=== PATIENT | female | born 1945 | race Caucasian/White ===

== ENCOUNTER 2017-05-12 13:07 | Inpatient (IN) | payer MEDICARE, OTHER ==
[~2017-05-12] VITALS: Ht 167.6 cm; Wt 78.0 kg
[~2017-05-12 13:07] MED LIST: ASPI-1094 PO; ATOR40TA PO; CLOP75TA2 PO; LOSA25TA13 PO; METO25TA6 PO
--- NOTE | 2017-05-12 13:08 | NUR ---
BBRA 102 FROM HOME FOR PALPITATIONS FROM [facility] PER REPORT PT IS STRESSED . PLACED ON MONITOR. AWAITING MD ORDER.
[2017-05-12 13:39] LABS: BASOPHILS % (AUTO) 0.6 % (0.0-2.0); EOSINOPHILS % (AUTO) 0.5 % (0.0-6.0); HEMATOCRIT 37 % (33-45); HEMOGLOBIN 12.7 g/dL (11.5-14.8); LYMPHOCYTES # (AUTO) 1.7 /CMM (0.8-4.8); LYMPHOCYTES % (AUTO) 28.6 % (20.0-44.0); MEAN CORPUSCULAR HEMOGLOBIN 31 PG (26.0-33.0); MEAN CORPUSCULAR HGB CONC 34 g/dl (31.0-36.0); MEAN CORPUSCULAR VOLUME 91 fL (82-100); MONOCYTES # (AUTO) 0.3 /CMM (0.1-1.30); NEUTROPHILS % (AUTO) 65.3 % (43.0-81.0); PLATELET COUNT (AUTO) 155 /CMM (150-450); RDW COEFFICIENT OF VARIATION 13.2 (11.5-15.0); RED BLOOD CELL COUNT(AUTO) 4.12 MIL/uL (4.0-5.2)
[2017-05-12 13:52] LABS: CALCIUM, SERUM 9.6 mg/dL (8.5-10.1); CARBON DIOXIDE 25 mmol/L (21-32); CHLORIDE 105 mmol/L (98-107); CREATININE 0.8 mg/dL (0.6-1.3); GLUCOSE 151 mg/dL (74-106); SODIUM SERUM 138 mmol/L (136-145); UREA NITROGEN, BLOOD 14 mg/dL (7-18)
[2017-05-12 13:55] LABS: INR 0.95 (0.87-1.13); PROTHROMBIN TIME 9.9 SECS (9.5-12.7)
[2017-05-12 14:01] LABS: TROPONIN I < 0.017 ng/mL (0.00-0.056)
[2017-05-12] MEDS ORDERED: ASPIRIN 325 MG TABLET PO ONE (15:00)
--- NOTE | 2017-05-12 15:30 | NUR ---
MS/BORING MACHINE SET UP OPERATOR PATIENT RECEIVED FROM ER IN STABLE CONDITION WITH DIAGNOSIS PALPITATIONS. A/O X 4. NO SIGNS OF ACUTE DISTRESS. NO COMPLAIN OF PAIN OR DISCOMFORT. DR RICO NOTIFIED AND ASKED FOR NEW ADMISSION ORDERS. PER DR RICO WILL PUT IT IN. CARDIAC DIET. ALL NEEDS ATTENDED TO. CALL LIGHT WITHIN REACH. WILL CONTINUE TO MONITOR TO ENSURE SAFETY.
[2017-05-12] MEDS ORDERED: ASPIRIN 325 MG TABLET ONE (15:36)
[2017-05-12 16:00] VITALS: BP 125/58
[2017-05-12] MEDS ORDERED: ONDANSETRON HCL/PF 4 MG/2 ML VIAL IVP PRN (18:00)
[2017-05-12] MEDS ORDERED: ZOLPIDEM TARTRATE 5 MG TABLET PO PRN (18:00)
[2017-05-12] MEDS ORDERED: NITROGLYCERIN 0.4 MG/TAB BOTTLE SL PRN (18:00)
[2017-05-12] MEDS ORDERED: LORAZEPAM 1 MG TABLET PO PRN (18:00)
[2017-05-12] MEDS ORDERED: MORPHINE SULFATE INJ 2 MG/ML DISP.SYRIN IV PRN ×2 (18:00)
[2017-05-12] MEDS ORDERED: DOCUSATE SODIUM 100 MG CAPSULE PO PRN (18:00)
--- NOTE | 2017-05-12 18:48 | NUR ---
TELE/RN CLOSING NOTE PATIENT IN BED IN STABLE CONDITION. A/O X 4. NO SIGNS OF ACUTE DISTRESS. NO COMPLAIN OF PAIN OR DISCOMFORT. RECEIVED CALL FROM LAB TO VERIFY TROPONIN LEVELS ORDER. PAGED DR. RICO. AWAITING FOR CALL BACK. WILL ENDORSE TO NEXT SHIFT FOR FOLLOW UP. ALL NEEDS ATTENDED TO. CALL LIGHT WITHIN REACH. WILL ENDORSE TO NEXT SHIFT FOR CONTINUITY OF CARE.
--- NOTE | 2017-05-12 19:34 | NUR ---
DOBIE WORKER NOTE RECEIVED PATIENT FROM DAY SHIFT, PATIENT IS ALERT AND ORIENTEDX4, DENIES RESPIRATORY DISTRESS OR PALPITATION AT THIS TIME. IV ON LEFT AC 18G IS PATENT AND INTACT, HL ONLY. TELE MONITOR SB58 WITH 1ST DEGREE AV BLOCK. SRX2, BED IN LOW POSITION, CALL LIGHT WITHIN REACH, WILL CONTINUE TO MONITOR PATIENT.
[2017-05-12 20:00] VITALS: BP 113/57
[2017-05-13] VITALS: BP_SYST 123; BP_SYST 142; BP_DIAS 61; BP_DIAS 69
[2017-05-13 04:00] VITALS: BP 145/81
[2017-05-13 06:42] LABS: BASOPHILS % (AUTO) 0.3 % (0.0-2.0); EOSINOPHILS # (AUTO) 0.1 /CMM (0.0-0.7); EOSINOPHILS % (AUTO) 1.3 % (0.0-6.0); HEMATOCRIT 40 % (33-45); HEMOGLOBIN 13.2 g/dL (11.5-14.8); LYMPHOCYTES # (AUTO) 2.5 /CMM (0.8-4.8); LYMPHOCYTES % (AUTO) 42.5 % (20.0-44.0); MEAN CORPUSCULAR HEMOGLOBIN 31 PG (26.0-33.0); MEAN CORPUSCULAR HGB CONC 34 g/dl (31.0-36.0); MEAN CORPUSCULAR VOLUME 92 fL (82-100); MONOCYTES # (AUTO) 0.5 /CMM (0.1-1.30); MONOCYTES % (AUTO) 8.1 % (2.0-12.0); NEUTROPHILS # (AUTO) 2.8 /CMM (1.8-8.9); NEUTROPHILS % (AUTO) 47.8 % (43.0-81.0); PLATELET COUNT (AUTO) 142 /CMM (150-450); RDW COEFFICIENT OF VARIATION 14.1 (11.5-15.0); RED BLOOD CELL COUNT(AUTO) 4.27 MIL/uL (4.0-5.2); WHITE BLOOD COUNT (AUTO) 5.8 K/uL (4.3-11.0)
--- NOTE | 2017-05-13 06:53 | NUR ---
CUT OUT PRESS OPERATOR NOTE PATIENT IS SLEEPING AT THIS TIME COMFORTABLY, NO ACUTE EVENT NOTED THROUGHOUT THE SHIFT. TELE SB 53. WILL ENDORSE TO DAY SHIFT NURSE FOR SUZAN.
[2017-05-13 07:00] LABS: AMYLASE 82 U/L (25-115); CALCIUM, SERUM 9.1 mg/dL (8.5-10.1); CARBON DIOXIDE 29 mmol/L (21-32); CHLORIDE 106 mmol/L (98-107); CREATININE 0.7 mg/dL (0.6-1.3); GLUCOSE 82 mg/dL (74-106); LIPASE 268 U/L (73-393); POTASSIUM 4.7 mmol/L (3.5-5.1); SODIUM SERUM 140 mmol/L (136-145); UREA NITROGEN, BLOOD 13 mg/dL (7-18)
[2017-05-13 07:05] LABS: INR 0.95 (0.87-1.13); PROTHROMBIN TIME 9.9 SECS (9.5-12.7)
[2017-05-13 07:08] LABS: CHOLESTEROL 143 mg/dL (<200); HDL CHOLESTEROL 69 mg/dL (40-60); LDL 56 mg/dL (0-99); TRIGLYCERIDES 96 mg/dL (30-150)
[2017-05-13 07:12] VITALS: BP 144/62
[2017-05-13 08:00] VITALS: BP 123/69
--- NOTE | 2017-05-13 08:02 | NUR ---
RN NOTES RECEIVED PT. PT IS STABLE AND SLEEPING IN BED. NO S/S OF DISTRESS OR SOB. PT IS ON TELE MONITOR, READING SINUS JOYCE. PT IS ON RA, O2 SAT WNL. IV ACCESS LOCATED ON LEFT AC 18G, SL. SAFETY MEASURES IN PLACE, CALL LIGHT WITHIN REACH. WILL CONTINUE TO MONITOR.
[2017-05-13] MEDS: METOPROLOL TARTRATE 25 MG TABLET PO SCH ×2 (09:00→17:57)
[2017-05-13] MEDS ORDERED: LOSARTAN POTASSIUM 25 MG TABLET PO SCH (09:00)
[2017-05-13] MEDS: ATORVASTATIN 40 MG TABLET PO SCH (09:00)
[2017-05-13] MEDS: LOSARTAN POTASSIUM 25 MG TABLET PO SCH (09:00)
[2017-05-13] MEDS: CLOPIDOGREL BISULFATE 75 MG TABLET PO SCH (09:00)
[2017-05-13] MEDS: ASPIRIN 81 MG TAB.CHEW PO SCH (09:00)
[2017-05-13] MEDS ORDERED: REGADENOSON 0.4 MG/5 ML DISP.SYRIN IVP ONE (09:00)
[2017-05-13 16:00] VITALS: BP 126/76
--- NOTE | 2017-05-13 18:57 | NUR ---
RN CLOSING NOTES PT IS IN BED RESTING. A/OX4, PT IS PRIMARILY CROATIAN SPEAKING. NO S/S OF DISTRESS OR SOB. PT PERFORMED CARDIAC STRESS TEST TODAY, RESULTS ARE STILL PENDING. PT NPO REMOVED.SAFETY MEASURES IN PLACE, CALL LIGHT WITHIN REACH. WILL ENDORSE TO SALVAGE INSPECTOR FOR SUZAN.
--- NOTE | 2017-05-13 19:30 | NUR ---
RN NOTES RECEIVED PATIENT IN BED AWAKE, AO X 3, ABLE TO MAKE NEEDS KNOWN. NO ACUTE DISTRESS NOTED. IV SITE PATENT, INTACT; FLUSHED. ON LOW BED WITH BILATERAL UPPER SIDE RAILS UP. CALL LIGHT WITHIN EASY REACH. WILL CONTINUE TO MONITOR.
[2017-05-13 20:00] VITALS: BP 142/71
--- NOTE | 2017-05-14 06:23 | NUR ---
RN NOTES PATIENT ASLEEP, EASILY AROUSABLE; RESPIRATIONS EVEN. NEEDS ATTENDED. SAFETY PRECAUTIONS AND COMFORT MEASURES IN PLACE. WILL GIVE REPORT TO DAY SHIFT FOR CONTINUITY OF CARE.
--- NOTE | 2017-05-14 07:58 | NUR ---
RN NOTES RECEIVED PT. PT IS AWAKE AND RESTING IN BED. A/OX4, PT IS KYRGYZ SPEAKING WITH MINIMAL [facility] HELEN[place]. NO S/S OF DISTRESS OR SOB. IV ACCESS LOCATED ON LEFT AC, 18G SL. PT IS ON RA, O2SAT WNL. STRESS TEST PERFORMED YESTERDAY WITH EF RESULTS OF 54%. SAFETY MEASURES IN PLACE, CALL LIGHT WITHIN REACH, WILL CONTINUE TO MONITOR.
[2017-05-14 08:00] VITALS: BP 123/70
[2017-05-14] MEDS: ATORVASTATIN 40 MG TABLET PO SCH (09:18)
[2017-05-14] MEDS: CLOPIDOGREL BISULFATE 75 MG TABLET PO SCH (09:19)
[2017-05-14] MEDS: LOSARTAN POTASSIUM 25 MG TABLET PO SCH (09:19)
[2017-05-14 09:21] VITALS: BP 123/70
[2017-05-14] MEDS: METOPROLOL TARTRATE 25 MG TABLET PO SCH (09:21)
[2017-05-14] MEDS: ASPIRIN 81 MG TAB.CHEW PO SCH (09:21)
--- NOTE | 2017-05-14 15:37 | NUR ---
DISCHARGE NOTE PT DISCHARGED TO HOME. VSS, NO S/S OF DISTRESS OR SOB. PT HAS NO C/O PAIN. PT ABLE TO AMBULATE WELL INDEPENDENTLY. IV ACCESS REMOVED. PATIENT DISCHARGE PAPERWORK, BELONGINGS LIST SIGNED AND COPIED. MEDICATION LIST AND EXIT CARE GIVEN TO PT. PT VERBALIZES UNDERSTANDING OF ALL EDUCATION. PT'S DAUGHTER ARRIVED TO PICK PT UP. PT LEFT IN PRIVATE CAR WITH DAUGHTER.
== END 2017-05-14 15:15 | disposition home or self-care (01) | DRG 303 ==
LOC: ER 13:09 → TELE 15:39 → MED 05-13 11:03
PROVIDERS: ADMIT Internal Medicine; ATTEND Internal Medicine
DX: I25.118 Atherosclerotic heart disease of native coronary artery with other forms of angina pectoris (principal); I11.9 Hypertensive heart disease without heart failure; I25.2 Old myocardial infarction; Z98.61 Coronary angioplasty status; Z79.899 Other long term (current) drug therapy; Z79.82 Long term (current) use of aspirin; Z98.890 Other specified postprocedural states
CPT/HCPCS: 36415; 71010-TC; 80048-TC; 80061-TC; 82150-TC; 83690-TC; 83735-TC; 84100-TC; 84484-TC; 85025-TC; 85610-TC; 85730-TC; 87081-TC; 93307-TC; A4606; A9502; J2785; Z7610

== ENCOUNTER 2017-05-20 10:47 | Outpatient (CLI) | payer MEDICARE, OTHER ==
[2017-05-20] MEDS ORDERED: METOPROLOL TARTRATE 25 MG TABLET PO SCH (17:00)
[2017-05-21] MEDS ORDERED: ATORVASTATIN 40 MG TABLET PO SCH (09:00)
[2017-05-21] MEDS ORDERED: ASPIRIN 81 MG TAB.CHEW PO SCH (09:00)
[2017-05-21] MEDS ORDERED: CLOPIDOGREL BISULFATE 75 MG TABLET PO SCH (09:00)
[2017-05-21] MEDS ORDERED: LOSARTAN POTASSIUM 25 MG TABLET PO SCH (09:00)
== END 2017-05-20 23:59 | disposition home or self-care (01) ==
LOC: MSC 10:47
PROVIDERS: ATTEND Internal Medicine
DX: R68.89 Other general symptoms and signs (principal)

== ENCOUNTER 2019-05-12 00:07 | Inpatient (IN) | payer MEDICARE, OTHER ==
[~2019-05-12] VITALS: Ht 167.6 cm; Wt 81.2 kg
[~2019-05-12 00:07] MED LIST changes: +CLOP75TA15 PO; -CLOP75TA2 PO; -LOSA25TA13 PO; +LOSA25TA27 PO
--- NOTE | 2019-05-12 00:30 | NUR ---
ISAEL FROM HOME TO ER BED 8. AAOX4. TACHYPNEIC, RAPID BUT EVEN. VERY ANXIOUS, TREMBLING. C/O MID CHEST PAIN. PER EMS REPORT, PT HAD AN ARGUEMENT WITH THE @ 2300 THEN THE CHEST PAIN STARTED TO HAPPEN. PER EMS RATES PAIN @ 7/10, PRESSURE, NON RADIATING. GIVEN 2 SPRAY NITROGLYCERIN ENROUTE TO ER W/O ANY RELIEF. EKG DONE. PT PLACED ON MONITOR. PT WAS GUIDED WITH BREATHING EXERCISE WITH HELPED WITH THE BREATHING. AWAITING MD FOR EVAL.
[2019-05-12 00:54] LABS: BASOPHILS # (AUTO) 0.1 /CMM (0.0-0.2); EOSINOPHILS % (AUTO) 1.3 % (0.0-6.0); HEMATOCRIT 39 % (33-45); HEMOGLOBIN 13.2 g/dL (11.5-14.8); LYMPHOCYTES # (AUTO) 3.3 /CMM (0.8-4.8); MEAN CORPUSCULAR HGB CONC 34 g/dl (31.0-36.0); MEAN CORPUSCULAR VOLUME 94 fL (82-100); MONOCYTES # (AUTO) 0.5 /CMM (0.1-1.30); MONOCYTES % (AUTO) 6.2 % (2.0-12.0); NEUTROPHILS # (AUTO) 3.8 /CMM (1.8-8.9); NEUTROPHILS % (AUTO) 48.5 % (43.0-81.0); PLATELET COUNT (AUTO) 175 /CMM (150-450); WHITE BLOOD COUNT (AUTO) 7.8 K/uL (4.3-11.0)
[2019-05-12] MEDS ORDERED: ASPIRIN 81 MG TAB.CHEW PO ONE (01:00)
[2019-05-12] MEDS ORDERED: NITROGLYCERIN PACKET 1 GM PACKET TD ONE (01:00)
[2019-05-12] MEDS ORDERED: ASPIRIN 81 MG TAB.CHEW ONE (01:05)
[2019-05-12] MEDS ORDERED: NITROGLYCERIN PACKET 1 GM PACKET ONE (01:05)
[2019-05-12] MEDS ORDERED: LORAZEPAM 1 MG TABLET ONE (01:08)
[2019-05-12] MEDS ORDERED: LORAZEPAM 1 MG TABLET PO ONE (01:30)
--- NOTE | 2019-05-12 01:33 | NUR ---
XRAY AT BEDSIDE
[2019-05-12 01:36] LABS: CALCIUM, SERUM 9.5 mg/dL (8.5-10.1); CARBON DIOXIDE 22 mmol/L (21-32); CHLORIDE 103 mmol/L (98-107); GLUCOSE 116 mg/dL (74-106); POTASSIUM 4.2 mmol/L (3.5-5.1); SODIUM SERUM 139 mmol/L (136-145); UREA NITROGEN, BLOOD 20 mg/dL (7-18)
[2019-05-12 01:47] LABS: ALANINE AMINOTRANSFERASE 21 U/L (12-78); ALKALINE PHOSPHATASE 98 U/L (46-116); ASPARTATE AMINOTRANSFERASE 19 U/L (15-37); B-TYPE NATRIURETIC PEPTIDE 130 PG/ML (0-125); BILIRUBIN,DIRECT 0.1 mg/dL (0.0-0.2); BILIRUBIN,TOTAL 0.3 mg/dL (0.2-1.0); TOTAL PROTEIN, SERUM 7.9 g/dL (6.4-8.2)
[2019-05-12] MEDS ORDERED: IOHEXOL-350 100 ML VIAL IV ONE ×3 (02:28→15:36)
--- NOTE | 2019-05-12 02:28 | NUR ---
DR HIDALGO GREEN PROMOTIONS SPECIALIST PAGED
[2019-05-12] MEDS ORDERED: IV NS 0.9% 250 ML IV ONE ×2 (02:30→14:48)
--- NOTE | 2019-05-12 02:55 | NUR ---
NAREN BA TALKING TO DR. DELANEY REGARDING PT ADMISSION.
--- NOTE | 2019-05-12 03:42 | NUR ---
PT DOES NOT KNOW WHAT ARE THE NAMES OF THE MEDICATION SHE TAKES. UNABLE TO DO MED RECON
--- NOTE | 2019-05-12 03:43 | NUR ---
REPORT GIVEN TO JO SANDOVAL FOR SUZAN.
[2019-05-12 04:00] VITALS: BP 137/63
--- NOTE | 2019-05-12 04:23 | NUR ---
PT TRANSPORTED TO UNIT ON [place] WITH EMT AND RN AT BEDSIDE WITH ACLS PROTOCOL. NAD NOTED DURING TRANSPORT. PT AMBULATED FROM GURNEY TO BED ON STEADY GAIT
--- NOTE | 2019-05-12 04:30 | NUR ---
RN NOTES RECEIVED PATIENT ON [facility]. PATIENT IS A/A/OX4, ON RA WITH SPO2 OF 95%. PT PLACED ON PIGMENT PUMPER WITH SR AND PVC'S. SKIN IS INTACT. RIGHT HAND 18G IV LINE IS PATIENT AND INTACT, NO COMPLAIN OF PAIN OR DISCOMFORT AT THIS TIME. ALL SAFETY MEASURES ARE IN PLACE, BED IS LOCKED AND LOW POSITION, CALL LIGHT IN REACH. WILL CONTINUE TO MONITOR PATIENT CLOSELY.
[2019-05-12] MEDS ORDERED: ACETAMINOPHEN 325 MG TABLET PO PRN (06:30)
[2019-05-12] MEDS ORDERED: ZOLPIDEM TARTRATE 5 MG TABLET PO PRN (06:30)
[2019-05-12] MEDS ORDERED: ONDANSETRON HCL/PF 4 MG/2 ML VIAL IVP PRN (06:30)
[2019-05-12] MEDS ORDERED: HYDROCODONE/APAP 5/325MG 1 EACH TABLET PO PRN (06:30)
--- NOTE | 2019-05-12 07:30 | NUR ---
ECONOMIC DEVELOPMENT SPECIALIST NOTES PT IN BED, AWAKE, ALERT AND ORIENTED, NO COMPLAINT OF CHEST PAIN, NOT IN DISTRESS, CALL LIGHT WITHIN REACH, AMBULATES TO THE BATHROOM WITH STEADY GAIT, KEPT COMFORTABLE IN BED.
[2019-05-12 07:42] LABS: BASOPHILS % (AUTO) 0.3 % (0.0-2.0); EOSINOPHILS % (AUTO) 1.5 % (0.0-6.0); HEMATOCRIT 37 % (33-45); HEMOGLOBIN 12.2 g/dL (11.5-14.8); LYMPHOCYTES # (AUTO) 2.3 /CMM (0.8-4.8); LYMPHOCYTES % (AUTO) 37.3 % (20.0-44.0); MEAN CORPUSCULAR HGB CONC 33 g/dl (31.0-36.0); MEAN CORPUSCULAR VOLUME 94 fL (82-100); MONOCYTES # (AUTO) 0.4 /CMM (0.1-1.30); MONOCYTES % (AUTO) 6.5 % (2.0-12.0); NEUTROPHILS # (AUTO) 3.4 /CMM (1.8-8.9); NEUTROPHILS % (AUTO) 54.4 % (43.0-81.0); PLATELET COUNT (AUTO) 154 /CMM (150-450); RED BLOOD CELL COUNT(AUTO) 3.89 MIL/uL (4.0-5.2); WHITE BLOOD COUNT (AUTO) 6.2 K/uL (4.3-11.0)
[2019-05-12 07:52] LABS: CALCIUM, SERUM 8.8 mg/dL (8.5-10.1); CARBON DIOXIDE 26 mmol/L (21-32); CHLORIDE 107 mmol/L (98-107); CREATININE 0.8 mg/dL (0.6-1.3); GLUCOSE 93 mg/dL (74-106); POTASSIUM 4.4 mmol/L (3.5-5.1); SODIUM SERUM 142 mmol/L (136-145); UREA NITROGEN, BLOOD 17 mg/dL (7-18)
[2019-05-12 07:56] LABS: CHOLESTEROL 139 mg/dL (<200); HDL CHOLESTEROL 58 mg/dL (40-60); LDL 66 mg/dL (0-99); TRIGLYCERIDES 69 mg/dL (30-150)
[2019-05-12 08:00] VITALS: BP 138/76
[2019-05-12 08:00] LABS: ALANINE AMINOTRANSFERASE 21 U/L (12-78); ALBUMIN 3.5 g/dL (3.4-5.0); ALKALINE PHOSPHATASE 85 U/L (46-116); ASPARTATE AMINOTRANSFERASE 15 U/L (15-37); BILIRUBIN,TOTAL 0.3 mg/dL (0.2-1.0); MAGNESIUM 1.8 mg/dL (1.8-2.4); PHOSPHORUS 4.3 mg/dL (2.5-4.9); TOTAL PROTEIN, SERUM 6.9 g/dL (6.4-8.2)
[2019-05-12] MEDS: METOPROLOL TARTRATE 25 MG TABLET PO SCH ×2 (08:14→21:35)
[2019-05-12] MEDS: CLOPIDOGREL BISULFATE 75 MG TABLET PO SCH (08:14)
[2019-05-12] MEDS: DOCUSATE SODIUM 100 MG CAPSULE PO SCH ×2 (08:14→16:17)
[2019-05-12] MEDS: PANTOPRAZOLE 40 MG TABLET.DR PO SCH (08:14)
[2019-05-12] MEDS: ASPIRIN 81 MG TAB.CHEW PO SCH (08:14)
[2019-05-12] MEDS: LOSARTAN POTASSIUM 25 MG TABLET PO SCH (08:15)
--- NOTE | 2019-05-12 09:08 | NUR ---
MANAGER FILE NOTES PT SEEN AND EXAMINED BY DR. GREGORIO, PLAN OF CARE DISCUSSED WITH PT THROUGH AN COMMISSIONED SECURITY OFFICER, VERBALIZED UNDERSTANDING.
[2019-05-12 12:00] VITALS: BP 151/82
--- NOTE | 2019-05-12 13:41 | NUR ---
CORPORATE AIRCRAFT MECHANIC NOTES PT SEEN AND EXAMINED BY DR. ROSENTHAL, PLAN OF CARE DISCUSSED WITH PT AND FAMILY, VERBALIZED UNDERSTANDING.
[2019-05-12] MEDS ORDERED: CT SWABBABLE VALVE TRANS SET 1 EA INFUS.SET MC ONE (14:48)
[2019-05-12] MEDS ORDERED: NITROGLYCERIN 0.4 MG/TAB BOTTLE ONE (15:17)
[2019-05-12] MEDS ORDERED: METOPROLOL TARTRATE INJ 5 MG/5 ML AMPUL ONE ×2 (15:39→15:43)
[2019-05-12 16:00] VITALS: BP 145/79
--- NOTE | 2019-05-12 18:22 | NUR ---
SERVICE LEARNING COORDINATOR NOTES PT IN BED, RESTING, NO COMPLAINT OF PAIN OR ANY DISCOMFORT, TOLERATES CURRENT DIET, COMPLETED CTA, TOLERATED WELL, PM CARE PROVIDED, KEPT WARM AND COMFORTABLE IN BED, ALL NEEDS ATTENDED.
--- NOTE | 2019-05-12 19:00 | NUR ---
RECEIVED PATIENT AWAKE,ALERT,NOT IN ANY RESPIRATORY DISTRESS,DENIES ANY CHEST PAIN.WITH FAMILY AT BEDSIDE,PATIENT CONVERSANT. S/P CT ANGIO TODAY.WILL CLOSELY MONITOR FOR ANY CHEST PAIN.NEEDS ATTENDED.
[2019-05-12 20:00] VITALS: BP 114/69
[2019-05-12 22:00] VITALS: BP 147/75
[2019-05-12] MEDS ORDERED: ATORVASTATIN 40 MG TABLET PO SCH (22:00)
[2019-05-13] VITALS: BP 157/79
--- NOTE | 2019-05-13 | NUR ---
remains stable,awake,alert, no episode of chest pain.
[2019-05-13 04:00] VITALS: BP 146/79
--- NOTE | 2019-05-13 04:00 | NUR ---
No changed .staus stable,not in any distress,denies chest pain.
--- NOTE | 2019-05-13 07:00 | NUR ---
RN NOTES RECEIVED PATIENT ON BED, A/Ox4, ELÍAS CHEST PAIN , ON RA. NO SOB NOTED, ON TELE SR, HR IN 60'S , R HAND AND R AC IV SITES, CLEAN, DRY AND INTACT. SR UP x3, CALL LIGHT WITHIN EASY REACH, BED LOCKED AND IN LOWEST POSITION , CONTINUE TO MONITOR .
--- NOTE | 2019-05-13 07:00 | NUR ---
STABLE ALL NIGHT ,NO CHEST PAIN,NO RESPIRATORY ISSUES.REPORT GIVEN TO JOHNSON OSORIO
[2019-05-13 08:00] VITALS: BP_SYST 116; BP_SYST 139; BP_DIAS 53; BP_DIAS 71
[2019-05-13] MEDS: DOCUSATE SODIUM 100 MG CAPSULE PO SCH (08:45)
[2019-05-13] MEDS: LOSARTAN POTASSIUM 25 MG TABLET PO SCH (08:45)
[2019-05-13] MEDS: ASPIRIN 81 MG TAB.CHEW PO SCH (08:45)
[2019-05-13] MEDS: PANTOPRAZOLE 40 MG TABLET.DR PO SCH (08:45)
[2019-05-13] MEDS: CLOPIDOGREL BISULFATE 75 MG TABLET PO SCH (08:45)
[2019-05-13] MEDS: METOPROLOL TARTRATE 25 MG TABLET PO SCH (08:46)
--- NOTE | 2019-05-13 10:00 | NUR ---
RN NOTES DR GREGORIO NOTIFED REGARDING LIMITED ARTERIAL FLOW TO POSTERIOR TIBIAL ARTERY THAT WAS FOUND DURING VENOUS DOPPLER STUDY .
--- NOTE | 2019-05-13 10:48 | NUR ---
RN NOTES REPORT GIVEN TO LILIAM OSORIO FOR CONTINUITY OF CARE .
--- NOTE | 2019-05-13 11:30 | NUR ---
tele linen room attendant: notes reviewed pt home meds, pt unable to recall her medications. pt called her pharmacist and provided her current home medications. raymon (rn) made aware.
[2019-05-13] MEDS ORDERED: IBUP-1953 PO (11:32)
[2019-05-13] MEDS ORDERED: GABA-532 PO (11:32)
[2019-05-13] MEDS ORDERED: RIVA10TA PO (11:32)
[2019-05-13] MEDS ORDERED: FERR325T23 PO (11:32)
[2019-05-13] MEDS ORDERED: ESOM40CA PO (11:32)
[2019-05-13] MEDS ORDERED: SACU1TAB7 PO (11:32)
[2019-05-13] MEDS ORDERED: METO25TA6 PO (11:32)
[2019-05-13] MEDS ORDERED: ASPI-992 PO (11:32)
[2019-05-13] MEDS ORDERED: TOLT4CAP PO (11:32)
[2019-05-13] MEDS ORDERED: CHOL100053 PO (11:35)
[2019-05-13 11:46] LABS: CALCIUM, SERUM 9.2 mg/dL (8.5-10.1); CREATININE 0.8 mg/dL (0.6-1.3); POTASSIUM 5.1 mmol/L (3.5-5.1)
[2019-05-13 12:00] VITALS: BP 127/63
--- NOTE | 2019-05-13 12:00 | NUR ---
RN NOTES RECEIVED PATIENT FROM [facility] FOR [facility]. PATIENT IN BED, AWAKE AND ALERT. WAS ASKING IF SHE WILL BE GOING HOME TODAY. GRANDSON AT BEDSIDE, UPDATED WITH THE STATUS OF THE PATIENT. NO COMPLAINS OF ANY PAIN NOR SOB. PATIENT ON ROOM AIR. BED LOCKED AND IN LOWEST POSITION. CALL LIGHT WITHIN REACH, WILL CONTINUE TO MONITOR
--- NOTE | 2019-05-13 15:00 | NUR ---
CENTER REP NOTE PATIENT AWARE OF DISCHARGE FROM MD. GRANDSON WILL TAKE PATIENT HOME VIA PRIVATE CAR. PATIENT STABLE, NO COMPLAINS OF ANY PAIN NOR SOB AT THIS TIME. IV SITE REMOVED. IF BANDS REMOVED. TELE BOX REMOVED. DISCHARGE BELONGINGS LIST SIGNED. EXIT CARE EXPLAINED AND GIVEN TO THE PATIENT. WAS GIVEN DR MONTERO'S CALLING CARD FOR A FOLLOW UP CHECK UP IN 1-2 WEEKS. PATIENT AMBULATORY AND HAS A STEADY GAIT. REFUSED TO BE WHEELED OUT. STANDBY ASSISTANCE TO THE LOBBY. FAMILY WITH THE PATIENT
== END 2019-05-13 14:55 | disposition home or self-care (01) | DRG 205 ==
LOC: ER 00:08 → TELE1 03:12
PROVIDERS: ADMIT Internal Medicine; ATTEND Internal Medicine
DX: M94.0 Chondrocostal junction syndrome [Tietze] (principal); N17.0 Acute kidney failure with tubular necrosis; J90 Pleural effusion, not elsewhere classified; K80.20 Calculus of gallbladder without cholecystitis without obstruction; F41.9 Anxiety disorder, unspecified; I10 Essential (primary) hypertension; I16.0 Hypertensive urgency; I25.10 Atherosclerotic heart disease of native coronary artery without angina pectoris; E78.5 Hyperlipidemia, unspecified; I25.2 Old myocardial infarction; F32.9 Major depressive disorder, single episode, unspecified; Z95.5 Presence of coronary angioplasty implant and graft; Z79.899 Other long term (current) drug therapy; Z79.02 Long term (current) use of antithrombotics/antiplatelets; Z98.890 Other specified postprocedural states
CPT/HCPCS: 36415; 71045-TC; 75574; 80048-TC; 80053-TC; 80061-TC; 80076-TC; 83735-TC; 83880; 84100-TC; 84484-TC; 85025-TC; 85378-TC; 87081-TC; 93307-TC; 93970-TC; G0378; J3490; J7050; Q9967

== ENCOUNTER 2019-05-15 10:33 | Outpatient (CLI) | payer MEDICARE, OTHER ==
[2019-05-15 10:30] VITALS: BP 124/75
[~2019-05-15 10:33] MED LIST changes: -ASPI-1094 PO; +ASPI-992 PO; +CHOL100053 PO; -CLOP75TA15 PO; +ESOM40CA PO; +FERR325T23 PO; +GABA-532 PO; +IBUP-1953 PO; -LOSA25TA27 PO; +RIVA10TA PO; +SACU1TAB7 PO; +TOLT4CAP PO
== END 2019-05-15 23:59 | disposition home or self-care (01) ==
LOC: MSC 10:33
PROVIDERS: ATTEND Internal Medicine
DX: I10 Essential (primary) hypertension (principal); E78.5 Hyperlipidemia, unspecified; F41.8 Other specified anxiety disorders; Z95.5 Presence of coronary angioplasty implant and graft; Z79.899 Other long term (current) drug therapy; Z79.82 Long term (current) use of aspirin

== ENCOUNTER 2019-05-29 22:09 | Emergency (ER) | payer MEDICARE, OTHER ==
[~2019-05-29] VITALS: Ht 167.6 cm; Wt 74.8 kg
--- NOTE | 2019-05-29 22:15 | NUR ---
PT AAOX4. AMBULATORY WITH ASSISTANCE. BIBRA 860 C/O L HAND/ LEG PAIN S/P UNWITNESSED GLF, DENIES KO. PT HYPERVENTILATING AND REPRTING PAIN FROM L SHOULDER SHOOTING TO ARM. PLACED ON MONITOR AND PULSE OX. MD AT BEDSIDE.
[2019-05-29] MEDS ORDERED: KETOROLAC TROMETHAMINE INJ 60 MG/2 ML VIAL IM ONE (22:22)
[2019-05-29] MEDS ORDERED: KETOROLAC TROMETHAMINE INJ 30 MG/ML VIAL IM ONE (22:30)
--- NOTE | 2019-05-29 22:30 | NUR ---
Pt brought to ct
--- NOTE | 2019-05-29 22:54 | NUR ---
pt brought back from ct
--- NOTE | 2019-05-29 22:59 | NUR ---
"Emilia" pt's daughter
--- NOTE | 2019-05-29 23:08 | NUR ---
Patient is resting comfortably in bed speaking to her daughter on the phone. Easily aroused. VSS.
[2019-05-30 00:12] VITALS: BP 148/82
--- NOTE | 2019-05-30 00:12 | NUR ---
Patient discharged to home in stable condition. Written and verbal after care instructions given. Patient verbalizes understanding of instruction. PT ambulatory with a steady gait.
== END 2019-05-30 00:13 | disposition home or self-care (01) ==
LOC: ER 22:16
DX: M25.512 Pain in left shoulder (principal); M25.562 Pain in left knee; M25.522 Pain in left elbow; R51 Headache; I10 Essential (primary) hypertension; I25.2 Old myocardial infarction; Z90.89 Acquired absence of other organs; Z95.5 Presence of coronary angioplasty implant and graft; Z79.899 Other long term (current) drug therapy; Z79.82 Long term (current) use of aspirin; W01.0XXA Fall on same level from slipping, tripping and stumbling without subsequent striking against object, initial encounter; Y93.89 Activity, other specified; Y92.89 Other specified places as the place of occurrence of the external cause; Y99.8 Other external cause status
CPT/HCPCS: 70450; 71045; 72125; 73030; 73060; 73080; 96372; 99284; J1885